=== PATIENT | male | born 1995 | race Caucasian/White ===

== ENCOUNTER 2016-07-19 00:19 | Inpatient (IN) | payer OTHER ==
[~2016-07-19] VITALS: Ht 177.8 cm; Wt 66.0 kg
[2016-07-19 01:09] LABS: MEAN CORPUSCULAR HEMOGLOBIN 29.6 pg (27.0-33.0); MEAN CORPUSCULAR VOLUME 84.5 fl (80.0-96.0); WHITE BLOOD COUNT 9.9 K/mm3 (4.0-10.0)
[2016-07-19 01:30] LABS: METHADONE URINE NEGATIVE (NEGATIVE)
[2016-07-19 01:39] LABS: ALBUMIN 4.6 GM/DL (3.2-5.2); ALBUMIN/GLOBULIN RATIO 1.48 (1.00-1.93); ALKALINE PHOSPHATASE 90 U/L (45-117); ALT/SGPT 28 U/L (12-78); ANION GAP 7 MEQ/L (8-16); AST/SGOT 18 U/L (15-37); BILIRUBIN,DIRECT 0.1 MG/DL (0.0-0.2); BILIRUBIN,TOTAL 0.4 MG/DL (0.2-1.0); BLOOD UREA NITROGEN 22 MG/DL (7-18); CALCIUM LEVEL 9.3 MG/DL (8.5-10.1); CARBON DIOXIDE LEVEL 30 MEQ/L (21-32); CHLORIDE LEVEL 104 MEQ/L (98-107); CREATININE FOR GFR 1.15 MG/DL (0.70-1.30); GLOMERULAR FILTRATION RATE > 60.0 (>60); GLUCOSE, FASTING 90 MG/DL (70-105); POTASSIUM SERUM 4.2 MEQ/L (3.5-5.1); SODIUM LEVEL 141 MEQ/L (136-145); TOTAL PROTEIN 7.7 GM/DL (6.4-8.2)
[2016-07-19] MEDS ORDERED: IBUPROFEN 400 MG TAB PO PRN ×2 (03:30→03:45)
[2016-07-19] MEDS ORDERED: MOM 30ML SUSPENSION UDC PO PRN ×2 (03:30→03:45)
[2016-07-19] MEDS ORDERED: ACETAMINOPHEN TAB 650MG DOSE (2X325MG) PO PRN ×2 (03:30→03:45)
[2016-07-19] MEDS ORDERED: traZODone 50 MG TAB PO PRN ×2 (03:30→03:45)
[2016-07-19 03:42] VITALS: BP 117/73
--- NOTE | 2016-07-19 11:14 | HPEPDOC ---
Medical History and Physical Date of Admission Jul 19, 2016 at 03:21 History and Physical PCP: [facility] ATTENDING: Dr. Misael Haskins HPI: 20yoM admitted to [facility] for unspecified depressive disorder, being medically examined today. No acute medical complaints today. Denies any fevers, chills, weakness, fatigue, JACKSON, CP, SOB, cough, palpitations, abdominal pain, N/V /D or changes in bowel or bladder habits. 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 Prior to that he drank 10 or more drinks per night. Illicit Drugs: Denies IV Drug Use: Denies Tattoos done unprofessionally: Denies FAMHX: Mother: Alive, well Father: Alive, well Siblings: Alive, well Children: None Unexpected deaths due to medical reasons: None. ROS: As noted in HPI, otherwise 11pt ROS of systems reviewed and remarkable. PE: GEN: 20 yo male, appears stated age. Well-nourished, well developed. No acute distress. Alert and oriented x 3. Pleasant, interactive. HEENT: Normocephalic, atraumatic. Pupils are equal, round, and reactive to light. Extraocular movements are intact. No nystagmus appreciated. Sclera are nonicteric. Conjunctiva without injection. Nose midline. Nasal turbinates without bogginess. EACs both patent BL. TMs both visualized and celestin with good cone of light, no bulging or erythema. No facial asymmetry. Moist mucous membranes. Dentition fair. Pharynx pink and moist, no cobblestoning. Neck supple , trachea midline. No lymphadenopathy or thyromegaly appreciated. CHEST: Regular rate and rhythm, +S1, +S2 LUNGS: Clear to auscultation bilaterally. No wheezes, rales, or rhonchi. Breathing appears symmetric and easy. Patient is speaking in full sentences. No accessory muscle use. ABD: Round, soft, non-tender, non-distended. +Bowel sounds throughout. No rebound or guarding. No costovertebral angle tenderness. EXT: Pulses 2+ bilaterally dorsalis pedis and radial. No lower extremity edema appreciated. SKIN: [place], dry, warm. Capillary refill <2sec. No rashes. NEURO: Alert and oriented x 3. Cranial nerves III-XII are intact. No focal deficits appreciated. EKG: pending. A&P: 20yoM admitted to [facility] for unspecified depressive disorder 1. Psych. Plan per Psychiatry. Obtain baseline EKG to assure the safety of psychiatric medications as they can prolong the QT interval. 2. Nicotine dependence. Patch available. 3. Follow up with PCP on discharge. 4. Eyad JURADO present throughout exam. Vital Signs Vital Signs Date Time Temp Pulse Resp B/P (MAP) Pulse Ox O2 Delivery O2 Flow Rate FiO2 07/19/16 03:42 97.3 62 20 117/73 (88) Room Air 07/19/16 03:31 99 Laboratory Data Labs 24H Laboratory Tests 2 07/19/16 00:50: Anion Gap 7L, Glomerular Filtration Rate > 60.0, Calcium Level 9.3, Aspartate Amino Transf (AST/SGOT) 18, Alanine Aminotransferase (ALT/SGPT) 28, Alkaline Phosphatase 90, Total Bilirubin 0.4, Direct Bilirubin 0.1, Total Protein 7.7, Albumin 4.6, Albumin/Globulin Ratio 1.48, Thyroid Stimulating Hormone (TSH) 1.950, Salicylates Level < 1.7L, Urine Amphetamines Screen NEGATIVE, Urine Benzodiazepines Screen NEGATIVE, Urine Opiates Screen NEGATIVE, Urine Methadone Screen NEGATIVE, Acetaminophen Level < 2.0L, Urine Barbiturates Screen NEGATIVE , Urine Phencyclidine Screen NEGATIVE, Urine Cocaine Metabolite Screen NEGATIVE , Urine Cannabinoids Screen NEGATIVE, Ethyl Alcohol Level < 0.003 CBC/BMP Laboratory Tests 07/19/16 00:50 Red Blood Count 5.45, Mean Corpuscular Volume 84.5, Mean Corpuscular Hemoglobin 29.6, Mean Corpuscular Hemoglobin Concent 35.0, Red Cell Distribution Width 12.0 Home Medications No Active Prescriptions or Reported Meds Allergies Coded Allergies: No Known Allergies (Unverified , 07/19/16) Sabi Holloway Jul 19, 2016 11:14
[2016-07-19] MEDS: VENLAFAXINE **XR** 37.5 MG CAPSULE PO SCH (11:55)
[2016-07-19 12:37] VITALS: BP 137/63
[2016-07-19 18:20] VITALS: BP 122/58
[2016-07-19 21:00] VITALS: BP 126/62
[2016-07-19] MEDS: traZODone 100 MG TAB PO SCH (21:00)
--- NOTE | 2016-07-19 21:10 | MHHPE ---
DATE OF ADMISSION: 07/19/2016 LEGAL STATUS AT ADMISSION: 9.39 legal status. CHIEF COMPLAINT: "I've been feeling very depressed, and I have suicidal thoughts. 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 According to the chart, patient came to the emergency department to evaluated for depression and suicidal ideation. Patient was brought by his chain of command. Patient was expressing suicidal thoughts and was afraid he would end up killing himself. 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 In April, he left to [place] for training. When he returned, he found out his "was gone." Patient reports having problems coping since then. They got in December 2015, and she is . She is currently living with her parents. He started to go to [facility] for counseling after this event. Patient reports worsening depression and suicidal thoughts. There is no evidence of psychotic symptoms. No auditory or visual hallucinations or delusions. Patient reports that he started drinking more often in order to cope with the above, but he said that he stopped drinking two weeks ago. During the interview today, patient reports feeling very depressed, isolating, sleeps approximately 1-1/2 hours at night. Patient reports negative thinking and cognitive distortion. Patient has thoughts as "I am worthless," "my will tell my daughter that I'm a piece of shit." Patient also reports frequent suicidal thoughts and difficulty dealing with them. PAST MEDICAL HISTORY: Patient denies any acute medical problems. PAST PSYCHIATRIC HISTORY: Patient reports that he was diagnosed with attention deficit disorder (ADD) when he was a child. He was started on Adderall, but his mother decided to take him off because of side effects. As above, patient has been in counseling since his left him. FAMILY HISTORY: Patient reports no relatives with an psychiatric illness. No substance abuse in the family. SUBSTANCE ABUSE HISTORY: Patient reports that he increased the amount of alcohol he was using after his left in order to cope but also said that he stopped abusing alcohol 2 weeks ago. He reports that he drinks now socially with his friend, but only when he goes out. Reports that he will drink one or two beers, but he can stop and does not think he has a problem with addiction. Patient denies any problem with substances or drugs other than the above reported. SOCIAL HISTORY: Patient was raised by both parents in [place]. Patient reports a completely normal childhood with no abuse or neglect. Patient graduated high school, but he reported that he was diagnosed with ADD. He was going to normal classes. No special education. 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 He got in December 2015 and , as above, after he returned from training, when his left. As above, his is . As support, he listed his chain of command, friends, and his parents who live in [place]. They have very little contact because "we are all busy." REVIEW OF SYSTEMS: CONSTITUTIONAL: No within normal limits, fevers, chills, weakness, or fatigue. HEENT: No visual loss, blurry vision, double vision, or yellow sclerae. No hearing loss, nasal congestion, runny nose, or sore throat. SKIN: No rash or itching. CARDIOVASCULAR: No chest pain, chest pressure, chest discomfort, palpitations, or edema. RESPIRATORY: No shortness of breath, cough, or sputum. GASTROINTESTINAL: No anorexia, nausea, vomiting, or diarrhea. No abdominal pain or blood. GENITOURINARY: No burning or pain on urination. NEUROLOGIC: No headache, dizziness, syncope, paralysis, ataxia, numbness, or tingling. MUSCULOSKELETAL: No muscle back pain, joint pain, or stiffness. HEMATOLOGIC: No anemia, bleeding, or bruising. LYMPHATIC: No history of a splenectomy. ENDOCRINOLOGIC: No reports of sweating, cold or heat intolerance. No polyuria or polydipsia. ALLERGIES: No history of asthma, hives, eczema, or rhinitis. 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 LABORATORIES AT ADMISSION: CBC is unremarkable. CMP within normal limits except BUN of 22. TSH within normal limits. UDS is negative. Blood alcohol level is negative. MENTAL STATUS EXAMINATION: Patient is dressed in [facility]. Patient is cooperative. His speech is soft and monotone. Has fair eye contact. Mood is depressed and anxious. Affect is restricted. Patient is oriented to time, place, person, and situation. Maintains attention and concentration fairly. Instant recall, recent and remote memory are intact. Thought processes are coherent, logical, and goal directed. Patient does not have auditory or visual hallucinations. Patient does not have paranoid, persecutory, somatic, grandiose, or catholic delusions. Patient is reporting suicidal ideation but denies homicidal thoughts. Judgment and insight are limited. DIAGNOSES: AXIS I: Major depressive disorder, attention deficit disorder. AXIS II: Deferred. AXIS III: None acute. INITIAL TREATMENT PLAN: Patient was admitted on a 9.39 legal status. Complete history was obtained. With his permission, family will be contacted and database will be expanded. His medication regimen will be reviewed and changed accordingly. He will be provided with protected environment. He will be treated with individual, group, and milieu therapies. He will also receive supportive psychoeducation. Discharge planning will commence immediately. Length of stay will be within 7-10 days. Outpatient followup will be strongly recommended. The treatment plan will focus initially on depression, risk of suicide.
--- NOTE | 2016-07-19 22:30 | ECGEPIP ---
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
[2016-07-20 07:01] VITALS: BP 108/58
[2016-07-20] MEDS: VENLAFAXINE **XR** 37.5 MG CAPSULE PO SCH (09:30)
[2016-07-20 18:00] VITALS: BP 116/56
[2016-07-20] MEDS: traZODone 100 MG TAB PO SCH (20:40)
[2016-07-20 21:00] VITALS: BP 126/64
--- NOTE | 2016-07-20 22:37 | IPN ---
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 SUBJECTIVE: "I am feeling about the same." OBJECTIVE: No major changes from yesterday at admission. The patient reports insomnia. The patient is denying side effects from the current medication. There is no evidence of psychotic symptoms. The patient appears motivated for treatment. MENTAL STATUS EXAMINATION: The patient is dressed in [facility]. The patient is cooperative during the interview, has poor eye contact. Speech is slow and monotone. Mood is depressed and anxious. Affect is restricted. No evidence of delusions or hallucinations. Memory, attention and concentration are fair. The patient is able to contract for safety during his hospitalization. Insight and judgment is limited. ASSESSMENT: 1. Depression. 2. Suicidal ideation. PLAN: 1. Increase Effexor to 75 mg by mouth every morning. 2. Continue with trazodone 100 mg by mouth nightly. 3. Continue medication management, individual and group therapy.
[2016-07-21 06:00] VITALS: BP 112/56
[2016-07-21] MEDS: VENLAFAXINE **XR** 75MG CAPSULE PO SCH (09:02)
[2016-07-21 18:00] VITALS: BP 115/56
[2016-07-21] MEDS: traZODone 100 MG TAB PO SCH (21:02)
--- NOTE | 2016-07-22 01:08 | IPN ---
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 SUBJECTIVE: "I'm feeling a little better." OBJECTIVE: Patient is improving slowly. Continues depressed, but his facial expression has improved. Continues with some psychomotor retardation. No evidence of psychotic symptoms. Denies side effects from the medication. MENTAL STATUS EXAMINATION: Patient is dressed in [facility]. Patient is cooperative during the exam, has poor eye contact. Speech is slow and monotone. Mood is depressed and anxious. Affect is restricted. No delusions or hallucinations. Memory, attention and concentration are fair. Patient is able to contract for safety during his hospitalization. Insight and judgment is limited. ASSESSMENT: 1. Depression. 2. Suicidal ideation. PLAN: 1. Continue Effexor XR 75 mg by mouth every morning. 2. Continue trazodone 100 mg by mouth nightly. 3. Continue medication management, individual and group therapy.
[2016-07-22 06:47] VITALS: BP 105/52
[2016-07-22] MEDS: VENLAFAXINE **XR** 75MG CAPSULE PO SCH (08:20)
[2016-07-22 18:21] VITALS: BP 102/59
[2016-07-22] MEDS: traZODone 100 MG TAB PO SCH (20:44)
[2016-07-23 06:22] VITALS: BP 135/59
--- NOTE | 2016-07-23 08:04 | IPN ---
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 SUBJECTIVE: "I'm feeing better." OBJECTIVE: The patient continues to improve. The patient is interacting better with other patients and staff. Psychomotor retardation is no longer present. He is able to smile. The patient denies side effects from the medication. No psychotic features. MENTAL STATUS EXAMINATION: The patient is dressed in [facility]. The patient is calm and cooperative, has fair eye contact. Speech is normal in rate, volume and articulation. Mood is depressed and anxious but improved. Affect is not as restricted. No delusions or hallucinations. Memory, attention and concentration are fair. The patient is able to contract for safety during his hospitalization. Insight and judgment is fair. ASSESSMENT: 1. Depression. 2. Suicidal ideation. PLAN: 1. Continue Effexor XR 75 mg by mouth every morning. 2. Continue trazodone 100 mg by mouth nightly. 3. Continue medication management, individual and group therapy.
[2016-07-23] MEDS: VENLAFAXINE **XR** 75MG CAPSULE PO SCH (09:19)
[2016-07-23 18:00] VITALS: BP 102/59
--- NOTE | 2016-07-23 18:41 | IPN ---
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 SUBJECTIVE: "I'm feeling better." OBJECTIVE: Patient continues to improve. He is interacting better with other patient's and staff. Patient's facial expression has improved, as has his psychomotor retardation. Patient is able to contract for safety while in the unit. No evidence of psychotic features. MENTAL STATUS EXAMINATION: Patient is dressed in [facility]. Patient is cooperative, has fair eye contact. Speech is normal in rate, volume and articulation. Mood is depressed and anxious, but improved. Affect is not as restricted. No delusions or hallucinations. Attention and concentration are fair. Patient is able to contract for safety during the interview. Insight and judgment is fair. ASSESSMENT: 1. Depression. 2. Suicidal ideation. PLAN: 1. Continue Effexor XR 75 mg by mouth every morning. 2. Continue trazodone 100 mg by mouth at bedtime. 3. Continue medication management, individual and group therapy.
[2016-07-23] MEDS: traZODone 100 MG TAB PO SCH (19:46)
[2016-07-24 07:19] VITALS: BP 132/67
[2016-07-24] MEDS: VENLAFAXINE **XR** 75MG CAPSULE PO SCH (08:24)
[2016-07-24 18:00] VITALS: BP 144/72
[2016-07-24] MEDS: traZODone 100 MG TAB PO SCH (21:25)
--- NOTE | 2016-07-25 05:59 | IPN ---
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 SUBJECTIVE: "I am feeling better". OBJECTIVE: Patient continues improving. Reports less mood swings, less feelings of depression and is able to contract for safety during his hospitalization. Patient is interacting better with other patients and staff. No evidence of psychomotor retardation. No psychotic features. Patient is asking about treatment of attention deficit. I discussed that with the patient. MENTAL STATUS EXAMINATION: Patient is dressed in [facility]. Patient is cooperative. Has fair eye contact. Speech is normal in rate, volume, articulation. Is coherent and is spontaneous. Patient is depressed and anxious but improved. Affect is also improved. No delusions or hallucinations. Attention and concentration is fair in the context of attention deficit hyperactivity disorder. Patient is able to contract for safety during the interview. Insight and judgment is fair. ASSESSMENT: 1. Depression. 2. Suicidal ideation. PLAN: 1. Continue Effexor XR 75 mg by mouth daily every morning. 2. Continue trazodone 100 mg by mouth daily at bedtime. 3. Continue medication management, individual and group therapy.
[2016-07-25 06:50] VITALS: BP 102/51
[2016-07-25] MEDS: VENLAFAXINE **XR** 75MG CAPSULE PO SCH (09:04)
[2016-07-25 18:00] VITALS: BP 117/65
--- NOTE | 2016-07-25 19:16 | IPN ---
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 SUBJECTIVE: "I'm feeling better." OBJECTIVE: Patient continues improving slowly. Patient reports a significant improvement from the depression symptoms. He is sleeping better with the help of medication, although last night "it was a little rough." Patient is interacting with other patients and staff. No psychomotor retardation. No psychotic symptoms. Discussed the treatment plan with the patient. MENTAL STATUS EXAMINATION: Patient is dressed in [facility]. Patient is cooperative. Has good eye contact. Speech is normal in rate, volume, and articulation. Is coherent and is spontaneous. Patient continues depressed and anxious but significantly improved from admission. Affect is also improved. No delusions or hallucinations. Attention and concentration are fair in the context of attention deficit hyperactivity disorder (ADHD). Patient is able to contract for safety during the interview. Insight and judgment are fair. ASSESSMENT: 1. Depression. 2. Suicidal ideation. PLAN: 1. Continue with Effexor XR 75 mg by mouth every morning. 2. Continue with trazodone 100 mg by mouth at bedtime. 3. Continue medication management, individual and group therapy.
[2016-07-25] MEDS: traZODone 100 MG TAB PO SCH (21:50)
[2016-07-26 06:44] VITALS: BP 125/56
[2016-07-26] MEDS: VENLAFAXINE **XR** 75MG CAPSULE PO SCH (08:50)
[2016-07-26] MEDS: NICOTINE 7 MG/24 HR TRANSDERMAL TD SCH (08:51)
[2016-07-26 18:48] VITALS: BP 114/56
[2016-07-26] MEDS: traZODone 100 MG TAB PO SCH (21:47)
--- NOTE | 2016-07-26 22:04 | IPN ---
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 SUBJECTIVE: "I am feeling much better." OBJECTIVE: Patient has significantly improved from admission. Patient denies suicidal ideation during the interview. Patient is interacting much better with other patients and staff. Patient denies side effect from medication. No psychotic symptoms. Sleeping better. MENTAL STATUS EXAMINATION: Patient is dressed in [facility]. Patient is cooperative during the interview, has fair eye contact. His speech is normal in rate, volume, articulation is coherent and is spontaneous. Patient denies auditory or visual hallucinations or delusions. Patient is able to contract for safety. Insight and judgment is fair. ASSESSMENT: 1. Depression. 2. Suicidal ideation. PLAN: 1. Continue with Effexor XR 75 mg by mouth every morning. 2. Trazodone 100 mg by mouth nightly. 3. Continue medication management, individual and group therapy. 4. Will have chain of command meeting tomorrow. If he continues improving, will discharge the patient after the chain of command meeting.
[2016-07-27 06:26] VITALS: BP 117/59
[2016-07-27] MEDS: NICOTINE 7 MG/24 HR TRANSDERMAL TD SCH (09:00)
[2016-07-27] MEDS: VENLAFAXINE **XR** 75MG CAPSULE PO SCH (09:09)
[2016-07-27] MEDS ORDERED: TRAZ10TA PO (11:40)
[2016-07-27] MEDS ORDERED: VENL75CA PO (11:40)
--- NOTE | 2016-07-28 04:43 | MHDS ---
DATE OF ADMISSION: 07/19/2016 DATE OF DISCHARGE: 07/27/2016 LEGAL STATUS AT ADMISSION: 9.39 legal status. 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 According to the chart, patient came to the emergency department to be evaluated for depression and suicidal ideation. He was brought by his chain of command. Patient was stating that he was thinking about ending his life and killing himself. He has been in the [employer] for the last 3 years. In April, he left to [place] for training. When he returned, he found out his "was gone." Patient reports having problems coping since then. They got in December 2015. She is currently and is living with her parents. He started treatment at [facility] after the above event. He reports worsening of depression and suicidal thoughts. There is no evidence of psychotic symptoms. No auditory or visual hallucinations or delusions. Patient reports that he started drinking more often in order to cope with the above. Said that he stopped drinking 2 weeks ago. During the interview in our unit, patient reported feeling depressed, isolating, sleeping 1-1/2 hours at night. Patient also had cognitive distortions and negative thinking. Patient was reporting thoughts such as "I'm worthless." "My will tell my daughter that I'm a piece of shit." Patient also reports frequent suicidal thoughts and difficulty dealing with them. LABORATORIES: At admission: CBC is unremarkable. CMP within normal limits except BUN of 22. TSH within normal limits. Urine drug screen was negative. Blood alcohol level was negative. HOSPITAL COURSE: After the first evaluation, patient ws started on Effexor XR 37.5 mg by mouth every morning and trazodone 50 mg by mouth nightly. Patient tolerated well the medication; however, he was complaining of insomnia and trazodone was increased to 100 mg by mouth nightly. Effexor was increased to 75 mg by mouth every morning. With the above medication, patient was stabilized. Patient had no complications during this hospital admission. During the hospitalization, we learned that patient has legal problems and that was the reason why his left him. He did not want to elaborate about his legal problems. His mood improved slowly, but steadily. By the end of his hospitalization, patient interacting very well with other patients and staff. Patient has no psychomotor retardation. His facial expression is normal. He is able to smile and joke with other patients. Patient is denying suicidal ideation and there is no evidence of any psychotic symptoms. Patient is planning to get from his . The patient is thinking about changing some of the daily activities that he was doing prior to discharge. Patient is thinking about increasing the exercise and socialization since these activities were very restricted before admission. Again, patient is discharged in stable condition and is motivated to continue his treatment as outpatient. MENTAL STATUS EXAMINATION AT DISCHARGE: Patient is dressed in [facility]. Patient is calm and cooperative, has good eye contact. Mood is euthymic. Affect is appropriate and congruent with mood. Patient is oriented to time, place, person and situation. Maintains attention and concentration correctly. Instant recall, recent and remote memory are intact. Thought processes are coherent, logical and goal directed. Patient does not have auditory or visual hallucinations. Patient does not have paranoid, persecutory, somatic, grandiose or zoroastrian delusions. Patient is denying suicidal or homicidal ideation. Judgment and insight are fair. DISCHARGE DIAGNOSES: AXIS I: Major depressive disorder, attention deficit hyperactivity disorder ( ADHD) by history. AXIS II: Deferred. AXIS III: None acute. MEDICATIONS AT DISCHARGE: - Effexor XR 75 mg by mouth every morning - trazodone 100 mg by mouth nightly CONDITION AT DISCHARGE: Stable. No suicidal or homicidal ideation. No auditory or visual hallucinations or delusions. INSTRUCTIONS TO THE PATIENT: Patient is to continue taking his medications as prescribed. Followup appointments. He is advised to maintain absolute sobriety from drugs and alcohol. Patient has scheduled appointment for medication management, individual psychotherapy and primary care physician. edited: 07/28/2016 [id number] kristian CAMERON
== END 2016-07-27 13:00 | disposition home or self-care (01) | DRG 881 ==
LOC: M ED 02:22 → M ED INP 03:21 → M ED 03:34 → M PSY 03:37
PROVIDERS: ADMIT Psychiatry & Neurology Psychiatry; ATTEND Psychiatry & Neurology Psychiatry
DX: F32.9 Major depressive disorder, single episode, unspecified (principal); R45.851 Suicidal ideations; F90.8 Attention-deficit hyperactivity disorder, other type; F17.210 Nicotine dependence, cigarettes, uncomplicated; Z79.899 Other long term (current) drug therapy